=== PATIENT | male | born 2000 | race Caucasian/White ===

== ENCOUNTER 2022-06-02 20:26 | Emergency (ER) | payer OTHER | END 2022-06-02 22:55 | disposition home or self-care (01) | LOC: FER 20:26 | DX: S06.0X9A Concussion with loss of consciousness of unspecified duration, initial encounter (principal); F17.200 Nicotine dependence, unspecified, uncomplicated; W19.XXXA Unspecified fall, initial encounter; Y92.009 Unspecified place in unspecified non-institutional (private) residence as the place of occurrence of the external cause | CPT/HCPCS: 36415; 70450; 93005 ==